=== PATIENT | male | born 1950 | race Caucasian/White ===

== ENCOUNTER 2017-10-09 14:47 | Inpatient (IN) | payer OTHER ==
--- NOTE | 2017-10-09 15:12 | CPEKG ---
Heart Rate: 87 RR Interval: 690 P-R Interval: 164 QRSD Interval: 146 QT Interval: 388 QTC Interval: 467 P Bloomer: 42 QRS Bloomer: -66 T Wave Bloomer: 25 EKG Severity - ABNORMAL ECG - EKG Impression: SINUS RHYTHM EKG Impression: RIGHT BUNDLE BRANCH BLOCK Electronically Signed By: Ajay Kumar 09-Oct-2017 15:51:32
[2017-10-09 15:27] LABS: % IMMATURE GRANULYOCYTES 0.2 % (0.0-1.1); ABSOLUTE IMMATURE GRANULOCYTES 0.01 10^3/uL (0.00-0.10); ADD DIFF? NO; ADD MORPH? NO; ADD SCAN? NO; ATYPICAL LYMPHOCYTE FLAG 0 (0-99); FRAGMENT RBC FLAG 0 (0-99); HEMATOCRIT 46.6 % (40.0-51.0); HEMOGLOBIN 15.9 g/dL (13.7-17.5); LEFT SHIFT FLG 0 (0-99); LIPEMIA HEMOLYSIS FLAG 90 (0-99); MEAN CELL HEMOGLOBIN 29.2 pg (27.9-34.1); MEAN CELL HEMOGLOBIN CONCENTR. 34.1 g/dL (32.4-36.7); MEAN CELL VOLUME 85.5 fL (81.5-99.8); MEAN PLATELET VOLUME 9.3 fL (8.7-11.7); PLATELET CLUMPS FLAG 0 (0-99); PLATELET COUNT 243 10^3/uL (150-400); RED BLOOD CELL COUNT 5.45 10^6/uL (4.40-6.38); RED CELL DISTRIBUTION WIDTH 18.2 % (11.5-15.2)
[2017-10-09 15:43] LABS: ANION GAP 14 mEq/L (8-16); CALCIUM 9.3 mg/dL (8.5-10.4); CARBON DIOXIDE 23 mEq/l (22-31); CHLORIDE 108 mEq/L (97-110); GLOMERULAR FILTRATION RATE > 60; GLUCOSE 113 mg/dL (70-100); POTASSIUM 3.8 mEq/L (3.5-5.2); SODIUM 145 mEq/L (134-144)
--- NOTE | 2017-10-09 15:50 | EDPHY ---
H & P Stated Complaint: HEART PALPATATIONS Time Seen by Provider: 10/09/17 14:56 HPI/ROS: CHIEF COMPLAINT: Episodic palpitations, lightheadedness, mild chest pressure HISTORY OF PRESENT ILLNESS: The patient presents the emergency department with a reported history of episodic palpitations. The patient reports these have increased in frequency over the past several years. They typically last 45 min then resolved. The patient experience 3 episodes approximately 2 weeks ago. They resolved and there was recurrence of his symptoms today. The patient reportedly went to urgent care and was referred to his physician's office. His heart rate was approximately 178. They did not obtain an EKG at that point time. He was referred to the emergency department for further testing. The patient states his palpitations and symptoms have currently resolved. The patient does report having a treadmill stress test in 2016 which was unremarkable. REVIEW OF SYSTEMS: A comprehensive 10 point review of systems is otherwise negative aside from elements mentioned in the history of present illness. Source: Patient Exam Limitations: No limitations - Personal History Current Tetanus/Diphtheria Vaccine: Yes Current Tetanus Diphtheria and Acellular Pertussis (TDAP): Yes Tetanus Vaccine Date: <10 YEARS - Medical/Surgical History Hx Asthma: Yes Hx Chronic Respiratory Disease: No Hx Diabetes: No Hx Cardiac Disease: No Hx Renal Disease: No Hx Cirrhosis: No Hx Alcoholism: No Hx HIV/AIDS: No Hx Splenectomy or Spleen Trauma: No Other PMH: POLYCYTHEMIA, HYPERTENSION - Social History Smoking Status: Former smoker - Physical Exam Exam: General Appearance: Alert, no distress Eyes: Pupils equal and round no pallor or injection ENT, Mouth: Mucous membranes moist Respiratory: There are no retractions, lungs are clear to auscultation Cardiovascular: Regular rate and rhythm Gastrointestinal: Abdomen is soft and nontender, no masses, bowel sounds normal Neurological: A&O, normal motor function, normal sensory exam, normal cranial nerves Skin: Warm and dry, no rashes Musculoskeletal: Neck is supple nontender Extremities: symmetrical, full range of motion Constitutional: Initial Vital Signs Temperature (C) 36.4 C 10/09/17 15:03 Heart Rate 96 10/09/17 15:03 Respiratory Rate 17 10/09/17 15:03 Blood Pressure 158/103 H 10/09/17 15:03 O2 Sat (%) 97 10/09/17 15:03 O2 Delivery Mode Room Air Allergies/Adverse Reactions: No Known Allergies Allergy (Unverified 10/09/17 15:03) Home Medications: Medication Instructions Recorded Aspirin EC [Aspirin EC 81 mg (*)] 81 mg PO DAILY 10/09/17 Herbals/Supplements -Info Only 1 ea PO DAILY 10/09/17 amLODIPine BESYLATE/BENAZEPRIL 1 each PO HS 10/09/17 [Lotrel 5/20 mg Cap (*)] Medical Decision Making - Diagnostics EKG Interpretation: EKG: Complete interpretation has been separately recorded in the [email or web address] archive. Summary impression: Right bundle branch block, rate 87 Imaging Results: Imaging Impressions Chest X-Ray 10/09/17 15:23 Impression: No acute findings in the chest. ED Course/Re-evaluation: The patient presents to the ED with a several week history of intermittent palpitations, chest pressure and lightheadedness. The patient had an episode of tachycardia earlier today which resolved prior to arrival. By report his heart rate was 178 at his primary care provider's office. The patient arrives in the emergency department is noted to have a chronic right bundle-branch block without ischemic changes. The patient was placed on a hall monitor. Workup in the emergency department did demonstrate a mildly elevated troponin. His chest x-ray demonstrated no evidence of heart failure. The patient remained asymptomatic throughout his stay in the emergency department. Given his indeterminately elevated troponin, tachycardia with associated symptoms of lightheadedness and chest pressure I do feel he should be admitted to the hospital for monitoring and further risk stratification. Consultation is made with Dr. Antonio Gomez from Cardiology who will see the patient in consultation. Consultation is made with Dr. Gemini Brand from the hospitalist service who will admit the patient. I re-evaluated the patient 5:00 p.m.. He has had no arrhythmia noted on monitoring in the emergency department. I discussed with him the rationale for admitting him to the hospital for chest pressure with associated tachycardia and elevated troponin. He is comfortable with the plan and disposition. Differential Diagnosis: Differential diagnosis considered includes SVT, atrial fibrillation, myocardial infarction, sinus tachycardia, anemia, dehydration - Data Points Laboratory Results: Laboratory Results 10/09/17 15:15 10/09/17 15:15 10/09/17 10/09/17 15:15 15:15 WBC 5.91 10^3/uL 10^3/uL (3.80-9.50) RBC 5.45 10^6/uL 10^6/uL (4.40-6.38) Hgb 15.9 g/dL g/dL (13.7-17.5) Hct 46.6 % % (40.0-51.0) MCV 85.5 fL fL (81.5-99.8) MCH 29.2 pg pg (27.9-34.1) MCHC 34.1 g/dL g/dL (32.4-36.7) RDW 18.2 % H % (11.5-15.2) Plt Count 243 10^3/uL 10^3/uL (150-400) MPV 9.3 fL fL (8.7-11.7) Neut % (Auto) 65.3 % % (39.3-74.2) Lymph % (Auto) 20.6 % % (15.0-45.0) Morris % (Auto) 11.2 % % (4.5-13.0) Eos % (Auto) 2.0 % % (0.6-7.6) Baso % (Auto) 0.7 % % (0.3-1.7) Nucleat RBC Rel Count 0.0 % % (0.0-0.2) Absolute Neuts (auto) 3.86 10^3/uL 10^3/uL (1.70-6.50) Absolute Lymphs (auto) 1.22 10^3/uL 10^3/uL (1.00-3.00) Absolute Monos (auto) 0.66 10^3/uL 10^3/uL (0.30-0.80) Absolute Eos (auto) 0.12 10^3/uL 10^3/uL (0.03-0.40) Absolute Basos (auto) 0.04 10^3/uL 10^3/uL (0.02-0.10) Absolute Nucleated RBC 0.00 10^3/uL 10^3/uL (0-0.01) Immature Gran % 0.2 % % (0.0-1.1) Immature Gran # 0.01 10^3/uL 10^3/uL (0.00-0.10) Sodium 145 mEq/L H mEq/L (134-144) Potassium 3.8 mEq/L mEq/L (3.5-5.2) Chloride 108 mEq/L mEq/L (97-110) Carbon Dioxide 23 mEq/l mEq/l (22-31) Anion Gap 14 mEq/L mEq/L (8-16) BUN 19 mg/dL mg/dL (7-23) Creatinine 1.0 mg/dL mg/dL (0.7-1.3) Estimated GFR > 60 Glucose 113 mg/dL H mg/dL (70-100) Calcium 9.3 mg/dL mg/dL (8.5-10.4) Troponin I 0.076 ng/mL H ng/mL (0.000-0.034) Departure - Departure Disposition: [facility] Inpatient Acute Clinical Impression: Chest pain, Palpitations, Elevated troponin Condition: Good Referrals: Giovani Ng, [Primary Care Provider] - As per Instructions
[2017-10-09 15:55] LABS: TROPONIN I 0.076 ng/mL (0.000-0.034)
[2017-10-09] MEDS ORDERED: ONDANSETRON 4 MG/2 ML VIAL IVP PRN (20:03)
[2017-10-09] MEDS ORDERED: ACETAMINOPHEN 325 MG TAB PO PRN (20:03)
[2017-10-09] MEDS ORDERED: ASPIRIN 81 MG CHEWABLE TAB ONE (20:39)
[2017-10-09] MEDS: AMLODIPINE BESYLATE 5/BENAZEPRIL 20MG 1 EACH CAP PO SCH (20:43)
--- NOTE | 2017-10-09 20:57 | GHP ---
[f rep st] HISTORY AND PHYSICAL DATE OF ADMISSION: 10/09/2017 CHIEF COMPLAINT: Lightheadedness. HISTORY: The patient is a 67-year-old male, who has been having episodes of lightheadedness for a co uple of years, although they are becoming increasingly more frequent. He describes it as a wave of l ightheadedness associated with a central chest tightness and left arm numbness. Typically they last about 45 minutes, although his episode today was much longer. He is now getting them 1-2 times per w ho-chunk. He does not really have palpitations, but if he checks his pulse during one of these episodes manuel e finds his heart rate to be quite rapid. He went to his primary care provider's office today during this prolonged episode, and was found have a heart rate of 178. They did not do an EKG, but sent lavon feldman right to the emergency room. By the time he came to the emergency room, he was no longer tachycard ic and back to a normal sinus rhythm. He has never worn a Holter monitor. He had an exercise treadm ill test 1-1/[address] Torrez. PAST MEDICAL HISTORY: 1. Hypertension. 2. Transient global amnesia. 3. Polycythemia vera, on intermittent phlebotomy. 4. Mild allergic asthma. MEDICATIONS: Please see computerized record for full detailed list. ALLERGIES: No known drug allergies. SOCIAL HISTORY: He is a former smoker, quit 15 years ago. A couple of alcoholic beverages per day. Lives with his . REVIEW OF SYSTEMS: Complete review of systems obtained. Review of systems negative regarding consti tutional, HEENT, GI, pulmonary, vascular, , hematology, skin, musculoskeletal, endocrine, psych, ex cept for positives and negative as noted in HPI. FAMILY HISTORY: Reviewed and noncontributory to presenting complaint. PHYSICAL EXAMINATION: GENERAL: Well-developed, well-nourished male, in no acute distress. VITAL SI GNS: Temperature is 36.4, pulse 78, blood pressure 135/99, satting 96% on room air. HEENT: Normal conjunctivae. Pupils reactive to light. ENT: Normal ears and nose. Hearing intact. Normal teeth. Oropharynx moist. NECK: Trachea midline. No thyromegaly. CHEST: Normal respiratory effort. Keily ngs are clear to auscultation bilaterally. CARDIOVASCULAR: Regular rhythm. No murmur. No extremit y edema. ABDOMEN: Soft, nontender. No hepatosplenomegaly. SKIN: Warm, dry, intact. No rash. MU SCULOSKELETAL: No cyanosis or clubbing. Strength 5/5 upper and lower extremities. NEUROLOGIC: Rehab Tech nial nerves intact. Normal sensation to light touch. PSYCH ASSESSMENT: Alert and oriented x3. Nor mal affect. Normal judgment. Normal memory. LABORATORY DATA: White count 5.9, hematocrit 46.6, platelets 243. Sodium 145, potassium 3.8, chlori de 108, bicarb 23, BUN 19, creatinine 1.0, glucose 132, troponin 0.076. EKG viewed by me. My personal interpretation is normal sinus rhythm with right bundle branch block. Chest x-ray is negative. ASSESSMENT/PLAN: 1. Tachy arrhythmia. Heart rate documented 178 beats per minute at primary care today. However, no EKG was done. We will continue to watch him on telemetry. If he has no events on telemetry here, I would discharge him from the hospital with an event monitor. We will check an echocardiogram and a TSH. 2. Chest pain with borderline troponin elevation. This troponin elevation very well may be due to h is very fast heart rate, but his chest pain is concerning. I will order an exercise thallium stress test for the morning, provided his troponin does not bump more significantly. 3. Hypertension. He is on Norvasc. We could consider changing this to a beta raymundo. 4. Polycythemia vera, on intermittent phlebotomy. Currently, hematocrit is normal. CODE STATUS: Full. ADMISSION STATUS: We will admit to observation. Depending on findings over the next 24 hours will d etermine the need for a longer stay. DVT PROPHYLAXIS: He is relatively low risk, and with possible procedures we will hold off on pharmac ologic prophylaxis at this time. /[id number]/MODL
[2017-10-09] MEDS: ASPIRIN EC 81 MG TAB PO SCH (20:58)
--- NOTE | 2017-10-10 05:09 | CPEKG ---
Heart Rate: 66 RR Interval: 909 P-R Interval: 172 QRSD Interval: 154 QT Interval: 456 QTC Interval: 478 P Cornish: 48 QRS Cornish: -67 T Wave Cornish: 6 EKG Severity - ABNORMAL ECG - EKG Impression: SINUS RHYTHM EKG Impression: RIGHT BUNDLE BRANCH BLOCK EKG Impression: COMPARED WITH 10/09/2017, NO SIGNIFICANT CHANGE Electronically Signed By: Valeri Jalloh 10-Oct-2017 09:10:40
[2017-10-10 06:04] LABS: CHOLESTEROL 207 mg/dL (140-220); HIGH DENSITY LIPOPROTEIN 47 mg/dL (40-65); LDL/HDL RATIO 2.62 RATIO (1.00-3.64); LOW DENSITY LIPOPROTEIN 123 mg/dL (80-100); NON-HIGH DENSITY LIPOPROTEIN 160 mg/dL (90-129); TRIGLYCERIDE 187 mg/dL (40-150); VERY LOW DENSITY LIPOPROTEINS 37 mg/dL (8-25)
[2017-10-10 06:12] LABS: TROPONIN I 0.057 ng/mL (0.000-0.034)
[2017-10-10] MEDS: ASPIRIN EC 81 MG TAB PO SCH (09:08)
--- NOTE | 2017-10-10 11:08 | ASMTCMCOM ---
CM Note CM Note Notes: Reviewed chart and discussed w/RN. Anticipate dc home independantly when medically ready. Date Signed: 10/10/2017 11:08 AM Electronically Signed By:Danielle Neves RN
--- NOTE | 2017-10-10 11:28 | ECHO ---
[email or web address] [address] [address] Main: [phone] Fax: Transthoracic Echocardiogram Name: NETTIE CAMPBELL MR#: [id number] Study Date: 10/10/2017 Study Time: 08:40 AM Date of : 1950 Age: 67 year(s) Height: 172.7 cm (68 in.) Weight: 78.47 kg (173 lb.) BSA: 1.92 m2 Gender: Male Examination: Echo Indication: tachycardia Image Quality: Adequate Contrast: Requested by: Gemini Brand BP: 145 mmHg/92 mmHg Heart Rate: Rhythm: Normal sinus rhythm Indication: tachycardia Procedure Staff Feeder/Folder: Olga Finnegan Physician: Requesting Provider: Measurements: Chambers Valvular Assessment AV/MV Valvular Assessment TV/PV Normal Normal Normal Name Value Range Name Value Range Name Value Range Ao Irene (MM): 3.8 cm (2.2 cm-3.7 AV Vmax: 1.14 m/s (1 m/s-1.7 PV Vmax: 0.87 m/s (0.6 m/s-0.9 cm) m/s) m/s) IVSd (2D): 1.2 cm (0.6 cm-1.1 AV maxP mmHg ( - ) PV PGmax: 3 mmHg ( - ) cm) LVOT Vmax: 0.90 m/s (0.7 m/s-1.1 LVDd (2D): 4.0 cm (4.2 cm-5.9 m/s) cm) MV E Vmax: 0.69 m/s ( - ) LVDs (2D): 2.6 cm (2.1 cm-4 MV A Vmax: 1.05 m/s ( - ) cm) MV E/A: 0.66 ( - ) LVPWd (2D): 1.0 cm (0.6 cm-1 cm) LVEF (BP): 71 % (>=55 %) RVDd(2D): 2.5 cm (1.9 cm-3.8 cmmm) Continued Measurements: Chambers Valvular Assessment AV/MV Valvular Assessment TV/PV Name Value Name Value Name Value LADs Lon.0 cm MV DecTime: 257 m/s CVP (est.): 5 mmHg LA Area: 11.2 cm2 MV E' Septal: 0.06 m/s LA Volume: 27 ml MV E/E' Septal: 12.20 LA Volume Index: 14.1 ml/m2 MV E/E' Lateral: 10.90 RA Area: 10.0 cm2 Additional Vessels Patient: NETTIE CAMPBELL Study Date: 10/10/2017 Page 1 of 2 08:40 AM Name Value Ao Ascendin.6 cm Findings: Left Ventricle: Normal size left ventricle. Borderline concentric LV hypertrophy. Normal global systolic LV function. EF is 71 %. No regional wall motion abnormality. Normal diastolic LV function. Right Ventricle: Normal size right ventricle. Normal RV function. Left Atrium: The left atrium is normal in size. Right Atrium: The right atrium is normal in size. Mitral Valve: The mitral valve is normal in appearance and function. No mitral stenosis is present. Trivial mitral valve regurgitation. Aortic Valve: The aortic valve is normal in appearance and function. There is no aortic valve regurgitation. No aortic valve stenosis is present. Tricuspid Valve: The tricuspid valve is normal in appearance and function. There is no tricuspid valve regurgitation. Pulmonic Valve: The pulmonic valve is normal in appearance and function. There is no pulmonic regurgitation seen. Aorta: The aorta is normal. Normal size aortic root measuring 3.8 cm. Normal size ascending aorta measuring 3.6 cm. Pericardium: No pericardial effusion. (No Signature Object) Patient: NETTIE CAMPBELL Study Date: 10/10/2017 Page 2 of 2 08:40 AM [id number]
--- NOTE | 2017-10-10 13:54 | GPN ---
[f rep st] PROCEDURE NOTE DATE OF PROCEDURE: 10/10/2017 PROCEDURE PERFORMED: Exercise treadmill stress test. INDICATION FOR PROCEDURE: Palpitation. After informed consent was obtained, the patient was started on a standard exercise Maciej protocol. His baseline ECG demonstrated normal sinus rhythm with underlying right bundle branch block. He does have a known history of a right bundle branch block. He was able to exercise for a total of 9 minut es and 30 seconds on a standard Maciej protocol. Of note, stage III was held for 30 seconds beyond 9 minutes. He achieved 98% of maximum predicted heart rate. Peak systolic blood pressure was 180/80. He had no symptoms or ECG changes. He had no arrhythmias with the exception of a single isolated, a symptomatic PVC. At peak level of exercise, at 98% of maximum predicted heart rate, he was injected with TC99m sestamibi. He will now undergo nuclear imaging. CONCLUSION: 1. Normal exercise treadmill stress test. No symptoms or ECG changes. No arrhythmias. Lowe treadm ill score of 9, low risk. 2. Nuclear images pending. /[id number]/MODL
--- NOTE | 2017-10-10 16:30 | HOSPPROG ---
Hospitalist Progress Note Assessment/Plan: 67 yo male admitted with chest pain and tachycardia. normal exercise treadmill test abnormal nuclear test Indeterminate troponins Mild HTN #Tachycardia, ?SVT #Chest Pain #HTN #Polycythemia vera, intermittent phlebotomy Plan: -await resting component of nuclear test tomorrow -event monitor as an outpatient -he has f/u with Dr. Sanders on Oct 13, event monitor can be set up then -No changes to current BP meds, he says they are more controlled in an op setting -Cont aspirin -Cont Amlodipine change to inpatient Subjective: no cp. no sob. wants to go home. no leg swelling. no further tachycardia Objective: Vital Signs Temp Pulse Resp BP Pulse Ox 36.3 C 83 16 144/98 H 95 10/10/17 12:00 10/10/17 12:00 10/10/17 12:00 10/10/17 12:00 10/10/17 12:00 10/09/17 10/10/17 10/11/17 05:59 05:59 05:59 Intake Total 1000 300 Balance 1000 300 - Physical Exam Constitutional: no apparent distress, appears nourished Eyes: PERRL, EOMI Ears, Nose, Mouth, Throat: moist mucous membranes, hearing normal Cardiovascular: regular rate and rhythym, No edema Respiratory: no respiratory distress, no rales or rhonchi Gastrointestinal: normoactive bowel sounds Skin: warm Neurologic: AAOx3 Psychiatric: interacting appropriately, not anxious, not encephalopathic Lymph, Heme, Immunologic: No petechiae ICD10 Worksheet Patient Problems: Problems Problem Status Onset Chest pain Acute Elevated troponin Acute Palpitations Acute
--- NOTE | 2017-10-10 17:00 | PDMN ---
Medical Necessity Medical necessity: C/M review: est. > 2 MN LOS for eval and TX of acute chest pain, tachycardia, questionable SVT, 10/10/2017 abnormal myocardial perfusion scan requiring planned 10/11/2017 myocardial perfusion scan resting images, ongoing cardiac monitoring, comorbid hypertension, polycythemia vera treated with intermittent phlebotomy per 10/10/2017 Hospitalist progress note.
[2017-10-10] MEDS: AMLODIPINE BESYLATE 5/BENAZEPRIL 20MG 1 EACH CAP PO SCH (20:34)
[2017-10-11] MEDS: ASPIRIN EC 81 MG TAB PO SCH (08:25)
[2017-10-11 09:26] VITALS: RESP 18
[2017-10-11 13:09] VITALS: BP 160/103; PULSE 76; TEMP 97.8; O2SAT 94
--- NOTE | 2017-10-11 15:14 | HOSPPROG ---
Hospitalist Progress Note Assessment/Plan: 67 yo male admitted with chest pain and tachycardia. normal exercise treadmill test abnormal nuclear test: there is a stress induced inferior wall defect. On resting imaging the defect is diminished. Indeterminate troponins Mild HTN I discussed the case with Dr. Palafox who has contacted Dr. Salazar who will see the patient. Given his risk factors, findings on nuclear test, and indeterminate troponins, he likely needs a cardiac cath. We will wait for formal recommendations. #Tachycardia, ?SVT, none seen while hospitalized #Chest Pain, currently with no chest pain #HTN #Polycythemia vera, intermittent phlebotomy Plan: -Cards reccs re cardiac cath -event monitor as an outpatient -he has f/u with Dr. Sanders on Oct 13, event monitor can be set up then -No changes to current BP meds, he says they are more controlled in an op setting -Cont aspirin -Cont Amlodipine -continue inpatient Subjective: no cp or sob, no tachycardia or palpitations, no leg swelling, no SOB Objective: Vital Signs Temp Pulse Resp BP Pulse Ox 36.6 C 76 18 160/103 H 94 10/11/17 12:00 10/11/17 12:00 10/11/17 12:00 10/11/17 12:00 10/11/17 12:00 10/10/17 10/11/17 10/12/17 05:59 05:59 05:59 Intake Total 750 Balance 750 - Physical Exam Constitutional: no apparent distress Eyes: PERRL Ears, Nose, Mouth, Throat: moist mucous membranes, hearing normal, ears appear normal Cardiovascular: regular rate and rhythym, No edema Respiratory: no respiratory distress, no rales or rhonchi, clear to auscultation Gastrointestinal: normoactive bowel sounds, soft, non-tender abdomen Skin: warm Musculoskeletal: full muscle strength Neurologic: AAOx3 Psychiatric: interacting appropriately, not anxious, not encephalopathic ICD10 Worksheet Patient Problems: Problems Problem Status Onset Chest pain Acute Elevated troponin Acute Palpitations Acute
[2017-10-11] MEDS ORDERED: METOPROLOL TARTRATE 25 MG TAB PO SCH (15:45)
--- NOTE | 2017-10-11 16:00 | ASDISCHSUM ---
Discharge Information Plan Status:Home with No Needs Medically Cleared to Leave:10/10/2017 Discharge Date:10/10/2017 CM D/C Disposition:Home, Routine, Self-Care ADT D/C Disposition:Home, Routine, Self-Care Projected Discharge Date:10/10/2017 Transportation at D/C:Family Discharge Delay Reason: Follow-Up Date:10/10/2017 Discharge Slot: Final Diagnosis: Placement Information Patient Contact Information Contact Name:REENA Relationship: Address:[address] Work Phone: City:[place] [employer] [facility] [place] Phone: [facility]/Zip Code:[place] [address] Email: Financial Information Financial Class: Primary Plan Desc:MEDICARE OUTPATIENT Primary Plan Number:[id number] Secondary Plan Desc:[facility] Secondary Plan Number:[id number] Assessment Information [facility] CM Progress Note CM Note CM Note Notes: Reviewed chart and discussed w/RN. Anticipate dc home independantly when medically ready. Date Signed: 10/10/2017 11:08 AM Electronically Signed By:Danielle Neevs RN Intervention Information
--- NOTE | 2017-10-11 16:27 | GCON ---
[f rep st] CONSULTATION CARDIOLOGY CONSULT DATE OF CONSULTATION: 10/11/2017 REASON FOR CONSULTATION: Abnormal stress test. HISTORY OF PRESENT ILLNESS: The patient is 67 years old. He has been having episodes of palpitation s associated with heart rates of 170. He decided to go to urgent care when he had an episode and ask ed for an EKG. He was seen by his primary care physician, who advised him to come the emergency depa [facility]. By arrival to the ER here at [facility], tachycardia had stopped. Initial troponin was mil dly elevated at 0.05. He was admitted to the hospital. 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 He was observed on telemetry and had no further dysrhythmia. He had a workup including serial enzymes, which did not show a rise and fall but steady low levels. He had an echocardiogram w [facility] showed no significant abnormalities. He had a nuclear stress test which suggests the possibilit y of inferior ischemia. I am asked to see him today to discuss further workup and evaluation. On my arrival, he is feeling well without chest pain, PND, orthopnea. He has had no further palpitations. He has had no syncope or near syncope. His episodes were described as a fast heart rate. They wer e associated with a queasy-type feeling in his upper chest. There was no significant radiation. He is followed by our group by Dr. Torrez. He has longstanding hypertension and hyperlipidemia which have been well managed. In 2010, he had a calcium score of 0. He had a stress test in November where he went over 8 minutes on a Maciej protocol without significant changes concerning for ischemi a with his underlying conduction abnormalities noted. He has been on good medical therapy without co mplications. REVIEW OF SYSTEMS: General negative for fever and chills. He has had no abdominal pain, diarrhea, o r constipation. He has had no dysuria, bruising, bleeding. He has had no hematemesis, melena, or he moptysis. PAST MEDICAL HISTORY: Significant for hypertension, hyperlipidemia, polycythemia. OUTPATIENT MEDICATIONS: Include amlodipine, benazepril, daily aspirin 81 mg a day as well as an herb al supplement. ALLERGIES: He has no known drug allergies. PAST SURGICAL HISTORY: Unremarkable. FAMILY HISTORY: Unremarkable. PHYSICAL EXAMINATION: VITAL SIGNS: Blood pressure here has been mildly elevated at 143/102 on the 2 4th at 8 a.m., 160/103 at noon. Heart rates have been 72-76. Oxygen saturation has been 93% on room air. He has been afebrile at 36.6. NECK: He has no JVP. CHEST: Clear. CARDIAC: Revealed a reg ular rate and rhythm. ABDOMEN: Soft. EXTREMITIES: Revealed no edema. 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 AL interval is 172 millis econds. Nuclear stress test showed normal perfusion of the anterior, lateral, and septal arauz. The re is a perfusion defect on the inferior wall of uncertain significance. Echocardiogram done , revealed an ejection fraction of 71% with left ventricular hypertrophy. There were no significa nt valvular abnormalities by Doppler or 2D study. LABORATORY DATA: Revealed a white count of 5.91, his hemoglobin was 15.9 with a hematocrit of 46. H is serum sodium was 145. His creatinine was 1. His troponins were 0.076, 0.081, 0.057. His triglyc erides were elevated at 187 with an LDL cholesterol of 123. His TSH was 1.8. IMPRESSION: The patient is a 67-year-old male admitted with intermittent tachycardia. He is at risk for atrial fibrillation in the setting of hypertension, potential use of alcohol in the past, and ag e. At this point, we have no diagnosis. RECOMMENDATIONS: Monitoring until we can capture his arrhythmia on paper. We will plan for initial 48-hour Holter, if not a 30-day monitor, if not considerations for an AliveCor or loop recorder. The patient has left ventricular hypertrophy associated with hypertension on vital signs. His tropon ins were mildly elevated, associated with the tachycardia. I think this likely represents a rate-rel ated phenomenon versus primary coronary disease, but this cannot be excluded. His abnormal nuclear s tress test may be secondary to his conduction abnormalities. With a coronary calcium score in 2011, risk of significant coronary artery disease is low although not 0. At this point, the patient would like to defer invasive testing until discussing this with his primary care food service manager. I think wit h low-dose beta-raymundo and aspirin, this would be safe. I have discussed other options with him inc luding a diagnostic angiogram today. He declines, and I am in agreement with this. He has had an ot herwise extensive metabolic evaluation including a normal TSH. His lipids are mildly elevated with a n LDL of 123. In the setting of a calcium score of 0, no treatment at this time would be warranted. We will continue him on his amlodipine and benazepril. We will add low-dose beta-raymundo as well as continue aspirin. We will have him follow up with Dr. Torrez on Thursday to discuss further evaluati on. We will try to get a monitor on him before discharge as well as advise him to get an AliveCor so we can document what the dysrhythmia is. His hemodynamics are stable. He has had no symptoms at [facility] and under observation. I have asked him not to exercise until we sort this out better. Questions were answered with him and his . He will be discharged home as outlined above. /[id number]/MODL
--- NOTE | 2017-10-11 21:54 | GDS ---
[f rep st] DISCHARGE SUMMARY ADMISSION DIAGNOSIS: Palpitations. DISCHARGE DIAGNOSES: 1. Palpitations of uncertain etiology. 2. Hypertension. 3. Left ventricular hypertrophy secondary to hypertension. 4. Mild elevation in troponin. 5. Mild abnormal nuclear stress test. 6. Hyperlipidemia. DISCHARGE MEDICATIONS: Please see the attached form 17. Of note, new addition of metoprolol 25 mg p .o. b.i.d. CONSULTATIONS: Cardiology. PROCEDURES: Nuclear stress test, echocardiogram. FOLLOWUP: Dr. Cuco Torrez on Thursday. RESTRICTIONS IN ACTIVITY: No exercise until followup on Thursday. PENDING STUDIES: 48-hour Holter. HOSPITAL COURSE: The patient is a 67-year-old male, who was admitted to the hospital with an episode of palpitations. EKG and navigation officer showed no dysrhythmia. He had an echocardiogram which s howed left ventricular hypertrophy, with overall preserved LV function. There were no valvular abnor malities. He had a nuclear stress test which was notable for an inferior perfusion defect of uncerta in significance. He has felt well. During his hospitalization, his vital signs remained stable exce pt for hypertension, with a blood pressure today of 160/100. At this point, we have no etiology for his dysrhythmia. It was elected to discharge him home with outpatient observation and followup with Dr. Torrez. Discussion was held regarding the need for a diagnostic angiogram. At this point, with a calcium score of 0 in 2011, no significant symptoms, and nuclear images at best, this is an interme diate need. At this point, we will begin a low-dose beta raymundo and have him follow up as an outpat ient. Questions were answered with him and his . He has ambulated without abnormalities. His t elemetry is stable. Physical examination revealed no significant abnormalities. He was discharged h ome with followup as outlined above. /[id number]/MODL
== END 2017-10-11 17:21 | disposition home or self-care (01) | DRG 310 ==
LOC: F2W 18:10 → OBSVTOIN 10-10 16:31
PROVIDERS: ADMIT Internal Medicine; ATTEND Internal Medicine
DX: R00.2 Palpitations (principal); I11.9 Hypertensive heart disease without heart failure; E78.5 Hyperlipidemia, unspecified; R94.39 Abnormal result of other cardiovascular function study; D45 Polycythemia vera; Z87.891 Personal history of nicotine dependence
CPT/HCPCS: A9500; G0378

== ENCOUNTER → 2018-11-05 | Outpatient (CLI) | payer OTHER | LOC: FIMAGING 09:21 | PROVIDERS: ATTEND Family Medicine | DX: Z13.83 Encounter for screening for respiratory disorder NEC (principal); R91.1 Solitary pulmonary nodule; K76.9 Liver disease, unspecified; N28.9 Disorder of kidney and ureter, unspecified; Z87.891 Personal history of nicotine dependence ==

== ENCOUNTER → 2018-11-12 | Outpatient (CLI) | payer OTHER, MEDICARE | LOC: FIMAGING 07:20 | PROVIDERS: ATTEND Family Medicine | DX: K76.0 Fatty (change of) liver, not elsewhere classified (principal); K76.89 Other specified diseases of liver; N28.1 Cyst of kidney, acquired ==